=== PATIENT | male | born 1960 | race Caucasian/White ===

== ENCOUNTER 2021-06-11 15:19 | Emergency (ER) | payer SELFPAY ==
[~2021-06-11] VITALS: Ht 172.7 cm; Wt 68.0 kg
[2021-06-11 15:25] VITALS: BP_SYST 154
--- NOTE | 2021-06-11 15:25 | NUR ---
Placed in room 5 . Placed on monitoring tech, blood pressure machine and pulse oximeter. To gown for exam. Side rails up.
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
--- NOTE | 2021-06-11 16:30 | NUR ---
PT ABLE TO AMBULATE TO RESTROOM AND PROVIDED URINE SAMPLE
--- NOTE | 2021-06-11 17:30 | NUR ---
Patient resting quietly. No acute distress noted. Vital signs within normal range.
--- NOTE | 2021-06-11 18:30 | NUR ---
Patient resting quietly. No acute distress noted. Vital signs within normal range.
--- NOTE | 2021-06-11 19:09 | NUR ---
REPORT GIVEN TO HAKEEM GUERRERO FOR CONTINUING CARE
--- NOTE | 2021-06-11 19:38 | NUR ---
Assisted patient to restroom.
[2021-06-11 19:54] VITALS: BP_SYST 149
--- NOTE | 2021-06-11 19:54 | NUR ---
Patient given written and verbal discharge instructions and verbalizes understanding. ER MD discussed with patient the results and treatment provided. Patient in stable condition. ID arm band removed. No Rx given. Patient educated on pain management and to follow up with PMD. Pain Scale 0/10. Opportunity for questions provided and answered.
== END 2021-06-11 19:54 | disposition home or self-care (01) ==
LOC: SED 15:19
DX: F10.129 Alcohol abuse with intoxication, unspecified (principal); G93.41 Metabolic encephalopathy; Y90.9 Presence of alcohol in blood, level not specified
CPT/HCPCS: 99283